=== PATIENT | female | born 1940 ===

== ENCOUNTER 2023-03-16 07:32 | Day surgery (SDC) | payer OTHER | END 2023-03-16 12:05 | disposition home or self-care (01) | LOC: AMB-ENDOS 07:32 | PROVIDERS: ATTEND Surgery | DX: K62.5 Hemorrhage of anus and rectum (principal); R19.4 Change in bowel habit; K64.5 Perianal venous thrombosis; K57.30 Diverticulosis of large intestine without perforation or abscess without bleeding; K64.8 Other hemorrhoids; Z20.822 Contact with and (suspected) exposure to COVID-19 ==